=== PATIENT | male | born 1940 | race Caucasian/White ===

== ENCOUNTER 2019-03-22 11:55 | Day surgery (SDC) | payer MEDICARE, OTHER, SELFPAY ==
[2019-03-22] MEDS: PROPARACAINE 0.5% OPHTH SOL 2 DROPS EYE-OP (12:31)
[2019-03-22] MEDS: CATARACT EYE COMPOUND (10 DROPS/SYRINGE) 3 DROPS EYE-OP (12:31)
[2019-03-22 12:33] VITALS: BP 160/93; PULSE 55; RESP 16; TEMP 36.4; O2SAT 98; BMI 27.6
--- NOTE | 2019-03-22 12:38 | PM.PREOP ---
Pre-operative Note Interval Note History & Physical reviewed/Exam performed by Physician: Yes Changes to H&P: No
[2019-03-22] MEDS: BALANCED SALT IRRIG SOLN NO.2 15 ML 5 ML IRR (13:07)
[2019-03-22] MEDS: TETRACAINE 0.5% OPHTH DROPS 4 ML 2 DROPS EYE-OP (13:08)
[2019-03-22] MEDS: BALANCED SALT IRRIG SOLN NO.2 500 ML, EPINEPHrine 1 MG IRR (13:08)
[2019-03-22] MEDS: CHONDROIDTIN/SOD HYALURONATE 1.05 ML SYRINGE INTRAOCULA ×2 (13:08→13:18)
[2019-03-22] MEDS: LIDOCAINE 2% INJ SDV 2 ML INJ (13:09)
[2019-03-22] MEDS: PHENYLEPHRINE/LIDOCAINE VIAL (OR) 0.2 ML EYE-OP (13:09)
[2019-03-22] MEDS: MOXIFLOXACIN INJ 5 MG/ML VIAL EYE-OP (13:09)
--- NOTE | 2019-03-22 13:47 | PM.OP.1 ---
Procedure & Clinicians Procedure: Cataract extraction with intraocular lens implant, right. 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 Floppy Iris syndrome, right. Surgeon: Yasir Avalos Click Yes if Unassisted: Yes Anesthesia Type: MAC +/- Operative Notes Procedure in detail: The patient was brought to the operating suite. The correct patient, surgical site and lens were confirmed. 0.5 % tetracaine drops were placed in the right eye. The patient was prepped and draped in the typical sterile manner. A lid speculum was placed in the eye. 2% lidocaine was placed on the eye. A paracentesis port was created with a side-port blade. 0.1 mL of 1% preservative free lidocaine with phenylephrine was injected into the anterior chamber. Viscoelastic was injected into the anterior chamber. A 2.6mm keratome was used to create a clear corneal temporal incision. The patient has floppy iris syndrome and a 6.25mm malyugin ring was placed. Cystotome and Utrata forceps were used to create a continuous curvilinear capsulorrhexis. Balanced salt solution was used to hydrodissect the nucleus. Phacoemulsification was used to remove the lens. The capsular bag was inflated with viscoelastic. A Chance ZCBOO +21.5D lens was inserted into the capsule. The Malyugin ring was removed. Viscoelastic was removed and the wound hydrated. The wound was found to be leak free and the eye was assessed to be at normal physiologic pressure. 0.1mL Vigamox was injected into the anterior chamber. The lid speculum was removed and the patient left the operating room in excellent condition. Complications: none Post-operative Condition: stable Disposition: same day surgery
[2019-03-22 13:58] VITALS: BP 157/96; PULSE 55; RESP 16; TEMP 36.2; O2SAT 97
== END 2019-03-22 14:04 | disposition admitted as inpatient to this hospital (09) ==
PROVIDERS: Family Provider Family Medicine; PCP Family Medicine; Visit Provider Ophthalmology
PROC: (CPT 66984; principal; 2019-03-22 13:00)
DX: H25.11 Age-related nuclear cataract, right eye (principal); M35.3 Polymyalgia rheumatica
CPT/HCPCS: 66984; J0171; J2250; J3010

== ENCOUNTER 2019-04-05 07:56 | Day surgery (SDC) | payer MEDICARE, OTHER, SELFPAY ==
[2019-04-05 09:02] VITALS: BP 140/84; PULSE 54; RESP 18; TEMP 36.4; O2SAT 98
[2019-04-05] MEDS: PROPARACAINE 0.5% OPHTH SOL 2 DROPS EYE-OP (09:10)
[2019-04-05] MEDS: CATARACT EYE COMPOUND (10 DROPS/SYRINGE) 3 DROPS EYE-OP (09:11)
--- NOTE | 2019-04-05 09:38 | PM.PREOP ---
Pre-operative Note Interval Note History & Physical reviewed/Exam performed by Physician: Yes Changes to H&P: No
[2019-04-05] MEDS: TETRACAINE 0.5% OPHTH DROPS 4 ML 2 DROPS EYE-OP (09:52)
[2019-04-05] MEDS: LIDOCAINE 2% INJ SDV 2 ML INJ (09:58)
[2019-04-05] MEDS: CHONDROIDTIN/SOD HYALURONATE 1.05 ML SYRINGE INTRAOCULA (09:58)
[2019-04-05] MEDS: BALANCED SALT IRRIG SOLN NO.2 15 ML 5 ML IRR (09:58)
[2019-04-05] MEDS: MOXIFLOXACIN INJ 5 MG/ML VIAL EYE-OP (09:59)
[2019-04-05] MEDS: PHENYLEPHRINE/LIDOCAINE VIAL (OR) 0.2 ML EYE-OP (09:59)
[2019-04-05] MEDS: BALANCED SALT IRRIG SOLN NO.2 500 ML, EPINEPHrine 1 MG IRR (10:00)
--- NOTE | 2019-04-05 10:23 | PM.OP.1 ---
Procedure & Clinicians Procedure: Cataract extraction with intraocular lens implant, left. Same procedure as scheduled: Yes Indications: Visually significant age related nuclear sclerosis, left Surgeon: Yasir Avalos Click Yes if Unassisted: Yes Anesthesia Type: MAC +/- Operative Notes Procedure in detail: The patient was brought to the operating suite. The correct patient, surgical site and lens were confirmed. 0.5 % tetracaine drops were placed in the left eye. The patient was prepped and draped in the typical sterile manner. A lid speculum was placed in the eye. 2% lidocaine was placed on the eye. A paracentesis port was created with a side-port blade. 0.1 mL of 1% preservative free lidocaine with phenylephrine was injected into the anterior chamber. Viscoelastic was injected into the anterior chamber. A 2.6mm keratome was used to create a clear corneal temporal incision. Cystotome and Utrata forceps were used to create a continuous curvilinear capsulorrhexis. Balanced salt solution was used to hydrodissect the nucleus. Phacoemulsification was used to remove the lens. The capsular bag was inflated with viscoelastic. A Chance ZCBOO +21.5D lens was inserted into the capsule. Viscoelastic was removed and the wound hydrated. The wound was found to be leak free and the eye was assessed to be at normal physiologic pressure. 0.1mL Vigamox was injected into the anterior chamber. The lid speculum was removed and the patient left the operating room in excellent condition. Complications: none Post-operative Condition: stable Disposition: same day surgery
[2019-04-05 10:30] VITALS: BP 146/88; PULSE 56; RESP 16; TEMP 36.2; O2SAT 97
== END 2019-04-05 10:42 | disposition home or self-care (01) ==
PROVIDERS: Family Provider Family Medicine; PCP Family Medicine; Visit Provider Ophthalmology
PROC: (CPT 66982; principal; 2019-04-05 09:30)
DX: H25.12 Age-related nuclear cataract, left eye (principal); H21.81 Floppy iris syndrome; M35.3 Polymyalgia rheumatica
CPT/HCPCS: 66982; J0171; J2250

== ENCOUNTER → 2022-02-18 09:38 | Outpatient (CLI) | payer OTHER, SELFPAY ==
[2022-02-18 12:18] LABS: Free T3, Triiodothyronine Free 3.07 pg/mL (2.77-5.27); Free T4, Direct Thyroxine 1.09 ng/dL (0.78-2.19)
[2022-02-18 12:32] LABS: Thyroid Stimulating Hormone 3.89 uIU/mL (0.47-4.68)
== END ==
PROVIDERS: Family Provider Family Medicine; PCP Family Medicine; Referring Provider Chiropractor; Visit Provider Chiropractor
DX: E03.9 Hypothyroidism, unspecified (principal)
CPT/HCPCS: 36415; 84439; 84443; 84481